=== PATIENT | female | born 1975 | race Caucasian/White ===

== ENCOUNTER 2017-09-28 09:30 | Day surgery (SDC) | payer OTHER ==
[2017-09-26 16:40] VITALS: BMI 24.0
[2017-09-28] MEDS ORDERED: MIDAZOLAM HCL 2 MG/2 ML SINGLE DOSE VIAL ONE (09:57)
[2017-09-28] MEDS ORDERED: fentaNYL CITRATE 250 MCG/5 ML VIAL ONE (10:36)
[2017-09-28] MEDS ORDERED: PROPOFOL 20 ML ONE (10:36)
[2017-09-28] MEDS ORDERED: ROCURONIUM BROMIDE 50 MG/5 ML VIAL ONE (10:36)
[2017-09-28] MEDS ORDERED: ceFAZolin SODIUM 1 GM VIAL IVPB ONE (10:40)
[2017-09-28] MEDS ORDERED: SODIUM CHLORIDE 0.9% P/F 10 ML VIAL IJ ONE (12:14)
[2017-09-28] MEDS ORDERED: ePHEDrine SULFATE 50 MG/1 ML AMPULE ONE (12:14)
[2017-09-28] MEDS ORDERED: NEOSTIGMINE METHYLSULFATE 0.5 MG/ML - 10 ML MDV ONE (12:55)
[2017-09-28] MEDS ORDERED: GLYCOPYRROLATE 0.2 MG/1 ML VIAL ONE ×2 (12:55)
[2017-09-28] MEDS ORDERED: PROMETHAZINE HCL 25 MG/1 ML VIAL IVPB PRN (13:18)
[2017-09-28] MEDS: ONDANSETRON 4 MG/2 ML VIAL IVPUSH PRN ×2 (13:25→22:48)
[2017-09-28] MEDS ORDERED: LACTATED RINGERS SOLUTION 1,000 ML IV SCH (13:30)
--- NOTE | 2017-09-28 13:37 | OP ---
Operative Note - Note: Operative Date: 09/28/17 Pre-Operative Diagnosis: Breast Asymmetry after Bilateral Implant Reconstructions with Descent of Inframammary folds and severe Left Sided Traction Rippling Operation: -Bilateral Breast Reconstruction Revisions: Removal of Bilateral Prostheses, Bilateral Capsulectomies, Revision of implant Pockets, Elevation of Bilateral Inframammary Folds, Insertion of Alloderm Sheets, Insertion of New Silicone Gel Prostheses. Implants: Powell Memory-Gel Smooth Round High Profile Implants Post-Operative Diagnosis: Same as Pre-op Surgeon: Chano Short Anesthesiologist/SHRIMPER: Behzad Roach Anesthesia: General Specimens Removed: Implants, Capsules Operative Report Dictated: Yes
--- NOTE | 2017-09-28 14:57 | OP ---
DATE OF OPERATION: 09/28/2017 PREOPERATIVE DIAGNOSES: Breast asymmetry after bilateral post-mastectomy implant reconstructions with descent of the inframammary folds and severe left-sided traction rippling. POSTOPERATIVE DIAGNOSES: Breast asymmetry after bilateral post-mastectomy implant reconstructions with descent of the inframammary folds and severe left-sided traction rippling. PROCEDURE PERFORMED: Bilateral breast reconstruction revisions with removal of bilateral prostheses, bilateral capsulectomies, revision of implant pockets with elevation of bilateral inframammary folds, bilateral insertion of AlloDerm sheets, and bilateral insertion of new silicone gel prostheses. SURGEON: Chano Delgadillo MD ANESTHESIOLOGIST: Behzad Roach MD ANESTHESIA: General via endotracheal tube. BRIEF HISTORY: The patient is status post bilateral mastectomies for right-sided breast cancer. She underwent bilateral reconstructions approximately 8 years ago and now presents with descent of both prostheses with hardening on both sides and severe left-sided traction rippling. She presents for revision. PROCEDURE: The patient was on the operating table in the supine position, and general anesthesia was administered by the anesthesiologist. The area of the chest was prepped and draped in usual sterile fashion. The patient had been marked in the standing position prior to surgery, and these markings were now used as a guide for the procedure. The right breast was addressed first. An incision was made approximately 1.5 cm above the current inframammary fold and approximately 6 cm in length. This incision was carried down sharply through subcutaneous tissues, and hemostasis was achieved using electrocautery. The thickened implant capsule was identified and dissection continued over the capsule, keeping the capsule intact circumferentially. The capsule was then entered and the implant was removed and the capsule was then removed as well. The implant pocket was enlarged both medially and superiorly and sutured to reduce the dimension laterally. The sutures used laterally were 2-0 Ethibond sutures in an interrupted fashion. A multi-layer fixation of the inframammary fold at a 1.5-cm higher position was then performed using 3-0 V-Loc 90 suture in a continuous fashion. This was further secured with 2-0 Ethibond suture in simple interrupted fashion in multiple areas. A sheet of thick contour-perforated AlloDerm was brought on the field and soaked in saline solution. The AlloDerm was then trimmed to size and was inset with the edge underneath the pectoralis major muscle. This was performed with 2-0 Vicryl suture in interrupted horizontal mattress fashion. The implant selected was a MENTOR MemoryGel, smooth, round, high-profile implant, 550 mL in size. This was inserted without difficulty using a Branch funnel. After orientation of the implant was confirmed, the AlloDerm was then reflected over the inferior portion of the implant and was sutured to the new inframammary fold using 2-0 Vicryl suture in interrupted fashion. A similar procedure was performed on the left side. Prior to closure, the patient was moved into the sitting position to confirm symmetry and was then returned to supine position for wound closure. Both inframammary wounds were then closed in layered fashion. Deep tissues were closed with 3-0 and 4-0 Biosyn suture in interrupted buried fashion, and a deep dermal layer of 4-0 V-Loc 90 in continuous fashion was used for skin closure. This was secured with 1/2-inch Steri-Strips. A sterile dressing was then applied and secured with a surgical bra. The patient was then awoken from anesthesia without any difficulty and taken from the operating room to the recovery room in satisfactory condition, having tolerated the procedure well. CHANO DELGADILLO M.D. [id number]
[2017-09-28] MEDS ORDERED: oxyCODONE HCL 5 MG TABLET ONE (16:00)
[2017-09-28] MEDS ORDERED: ONDANSETRON 4 MG/2 ML VIAL ONE (16:34)
[2017-09-28] MEDS ORDERED: ONDANSETRON 4 MG/2 ML VIAL IVPUSH ONE (16:45)
[2017-09-28] MEDS ORDERED: MEPERIDINE HCL CARPU-JECT 50 MG/1 ML DISP.SYRIN ONE ×2 (17:17→17:20)
[2017-09-28] MEDS ORDERED: MEPERIDINE HCL CARPU-JECT 50 MG/1 ML DISP.SYRIN IVPUSH ONE (17:20)
[2017-09-28] MEDS ORDERED: PROMETHAZINE HCL 25 MG/1 ML VIAL ONE (17:45)
[2017-09-28] MEDS ORDERED: PROMETHAZINE HCL 25 MG/1 ML VIAL IVPUSH ONE (17:45)
[2017-09-28] MEDS ORDERED: oxyCODONE HCL 5 MG TABLET PO PRN (18:28)
[2017-09-28] MEDS: oxyCODONE HCL 5 MG TABLET PO PRN (22:48)
[2017-09-29] MEDS: oxyCODONE HCL 5 MG TABLET PO PRN ×3 (03:24→13:43)
[2017-09-29 15:08] VITALS: BP 125/80; PULSE 99; TEMP 98.3
--- NOTE | 2017-09-29 16:40 | PATH ---
Surgical Pathology Report Patient Name: JONH CLEANING [facility]. Rec. #: [id number] /Age/Gender: 1975 (Age: 42) / F Account: [id number] Location: [address] [place] [address]/[facility] Taken: 09/28/2017 Received: 09/28/2017 Reported: 09/29/2017 Physicians: Chano Short M.D. Specimen(s) Received A: SEGMENT OF CAPSULE RIGHT BREAST B: SEGMENT OF CAPSULE LEFT BREAST C: REMOVED RIGHT BREAST IMPLANT D: REMOVED LEFT BREAST IMPLANT Clinical History Breast cancer Final Diagnosis A. SOFT TISSUE, RIGHT BREAST, EXCISION: FIBROUS TISSUE CONSISTENT WITH BREAST IMPLANT CAPSULE. B. SOFT TISSUE, LEFT BREAST, EXCISION: FIBROUS TISSUE CONSISTENT WITH BREAST IMPLANT CAPSULE C. SALESPERSON HOSIERY, RIGHT BREAST, REMOVAL: BREAST IMPLANT (GROSS ONLY). D. SALESPERSON HOSIERY, LEFT BREAST, REMOVAL: BREAST IMPLANT (GROSS ONLY). Electronically Signed Eduard Riggins M.D. Gross Description A. Received in formalin labeled "segment of capsule right breast," is a 6.5 x 2.0 x 0.2 cm portion of samano, firm fibrous tissue, consistent with a portion of breast capsule. No mass is identified. Durable Medical Equipment Technician sections are submitted in one cassette. B. Received in formalin labeled "segment of capsule left breast," is a 4.7 x 2.2 x 0.2 cm portion of samano, firm fibrous tissue, consistent with a portion of breast capsule. No mass is identified. Durable Medical Equipment Technician sections are submitted in one cassette. C. Received fresh labeled "removed left breast implant," is a 13 cm in diameter x 4 cm in depth clear, rubbery breast implant. No soft tissue is present. No sections are submitted, gross only. D. Received fresh labeled "removed right breast implant," is a 13 cm in diameter x 4 cm in depth clear, rubbery breast implant. No soft tissue is present. No sections are submitted, gross only. 09/28/2017 [facility]09/28/2017
[2017-09-29] MEDS ORDERED: ONDANSETRON 4 MG/2 ML VIAL IVPUSH ONE (18:45)
== END 2017-09-29 18:54 | disposition home or self-care (01) ==
LOC: JASU-SURG 09:30 → J6S 19:50 → JASU-SURG 09-29 18:54
PROVIDERS: ATTEND Plastic Surgery
PROC: 0HWT0YZ Revision of Other Device in Right Breast, Open Approach (ICD-10-PCS; 2017-09-28)
PROC: 0HPU0JZ Removal of Synthetic Substitute from Left Breast, Open Approach (ICD-10-PCS; 2017-09-28)
PROC: 0HPT0JZ Removal of Synthetic Substitute from Right Breast, Open Approach (ICD-10-PCS; 2017-09-28)
PROC: 0HUV0JZ Supplement Bilateral Breast with Synthetic Substitute, Open Approach (ICD-10-PCS; 2017-09-28)
PROC: 0HWU0YZ Revision of Other Device in Left Breast, Open Approach (ICD-10-PCS; principal; 2017-09-28 09:30)
DX: N65.1 Disproportion of reconstructed breast (principal); N64.89 Other specified disorders of breast; Z85.3 Personal history of malignant neoplasm of breast; T85.49XA Other mechanical complication of breast prosthesis and implant, initial encounter; Y83.8 Other surgical procedures as the cause of abnormal reaction of the patient, or of later complication, without mention of misadventure at the time of the procedure; Y92.9 Unspecified place or not applicable
CPT/HCPCS: 88300-TC; 88304-TC; 94760